=== PATIENT | female | born 1965 | race Caucasian/White ===

== ENCOUNTER 2021-02-20 10:39 | Inpatient (IN) | payer BC, MEDICAID ==
[~2021-02-20] VITALS: Ht 160 cm; Wt 61.7 kg
[2021-02-20] MEDS ORDERED: DIPHENHYDRAMINE 25MG CAPSULE PO ONE (11:00)
[2021-02-20] MEDS ORDERED: SODIUM CHLORIDE 0.9% 1,000 ML IV ONE (12:00)
[2021-02-20 12:21] LABS: BASOPHILS % 0.5 % (0.0-2.0); EOSINOPHILS % 0.5 % (0.0-5.0); HEMATOCRIT. 37.7 % (36.0-48.0); HEMOGLOBIN. 12.7 g/dL (12.0-16.0); LYMPHOCYTES % 31.7 % (20.0-50.0); MEAN CORPUSCULAR HEMOGLOBIN 29.4 pg (28.0-32.0); MEAN CORPUSCULAR VOLUME 87.6 fL (81.0-99.0); MEAN PLATELET VOLUME 8.5 fl (7.4-10.4); NEUTROPHILS % 59.3 % (40.0-76.0); PLATELET 276 x1000/uL (130-400); RED CELL DISTRIBUTION WIDTH 14.5 % (11.6-14.6)
[2021-02-20 12:27] LABS: CHLORIDE 108 mEq/L (98-107)
[2021-02-20 12:31] LABS: PARTIAL THROMBOPLASTIN TIME 27.2 sec (23.4-31.0); PROTHROMBIN TIME 10.7 sec (9.6-11.0)
[2021-02-20] MEDS ORDERED: ASPIRIN 81MG TABLET PO ONE (13:00)
[2021-02-20] MEDS ORDERED: DIPHENHYDRAMINE 50MG/ML VIAL IV PRN (15:30)
[2021-02-20] MEDS ORDERED: IPRATROPIUM/ALBUTEROL 0.5-3(2.5)MG/3ML NEB HHN PRN (15:30)
[2021-02-20] MEDS ORDERED: LORAZEPAM 0.5MG TABLET PO PRN (15:30)
[2021-02-20] MEDS ORDERED: HEPARIN 5000 UNITS/ML VIAL IV PRN ×2 (16:45)
[2021-02-20] MEDS ORDERED: HEPARIN 25,000 UNITS PREMIX 250 ML IV PRN (16:45)
[2021-02-20] MEDS ORDERED: HEPARIN 5000 UNITS/ML VIAL IV NR (16:45)
[2021-02-20 17:21] LABS: PROTHROMBIN TIME 10.9 sec (9.6-11.0)
[2021-02-20 18:00] VITALS: BP 161/71
[2021-02-20] MEDS ORDERED: ACETAMINOPHEN 325MG TABLET PO PRN (18:00)
[2021-02-20] MEDS ORDERED: CLONIDINE 0.1MG TABLET PO PRN (18:00)
[2021-02-20] MEDS ORDERED: DOCUSATE SODIUM 100MG CAPSULE PO PRN (18:00)
[2021-02-20] MEDS ORDERED: GUAIFENESIN 200MG/10ML SUGAR FREE UDC PO PRN (18:00)
[2021-02-20] MEDS ORDERED: ONDANSETRON HCL 4MG/2ML INJ IV PRN (18:00)
[2021-02-20] MEDS ORDERED: HYDROCODONE/ACETAMINOPHEN 5/325MG TABLET PO PRN (18:00)
[2021-02-20] MEDS ORDERED: MAGNESIUM/ALUMINUM HYDROXIDE/SIMETHICONE 30ML UDC PO PRN (18:00)
[2021-02-20 18:45] VITALS: BP 161/71
[2021-02-20] MEDS: FAMOTIDINE 20MG TABLET PO SCH (21:00)
[2021-02-20] MEDS: METHYLPREDNISOLONE SOD SUCC 40 MG/ML VIAL IV SCH (21:20)
[2021-02-20 21:30] VITALS: BP 115/68
[2021-02-20] MEDS: AMLODIPINE 10MG TABLET PO SCH (22:07)
[2021-02-21] VITALS: BP 126/67
[2021-02-21 04:00] VITALS: BP 118/52
[2021-02-21] MEDS: METHYLPREDNISOLONE SOD SUCC 40 MG/ML VIAL IV SCH ×3 (06:00→22:13)
[2021-02-21] MEDS: IPRATROPIUM/ALBUTEROL 0.5-3(2.5)MG/3ML NEB HHN SCH ×2 (07:15→15:11)
[2021-02-21 07:16] LABS: CHLORIDE 107 mEq/L (98-107)
[2021-02-21 07:21] LABS: BASOPHILS % 0.8 % (0.0-2.0); HEMATOCRIT. 38.4 % (36.0-48.0); HEMOGLOBIN. 12.8 g/dL (12.0-16.0); MEAN CORPUSCULAR HEMOGLOBIN 29.2 pg (28.0-32.0); MEAN CORPUSCULAR VOLUME 87.4 fL (81.0-99.0); MEAN PLATELET VOLUME 9.1 fl (7.4-10.4); MONOCYTES % 8.3 % (2.0-8.0); NEUTROPHILS % 56.9 % (40.0-76.0); PLATELET 265 x1000/uL (130-400); RED BLOOD CELL COUNT 4.39 mill/uL (4.2-5.4); RED CELL DISTRIBUTION WIDTH 14.3 % (11.6-14.6)
[2021-02-21 07:25] LABS: LDL CHOLESTEROL 126 mg/dL (5-100)
[2021-02-21 07:27] LABS: HDL CHOLESTEROL 80 mg/dL (40-59)
[2021-02-21 08:00] VITALS: BP 127/50
[2021-02-21] MEDS ORDERED: VERAPAMIL HCL 2.5 MG/1 ML 2ML VIAL IV ONE (08:33)
[2021-02-21] MEDS ORDERED: IODIXANOL 320MG/ML 100 ML BOTTLE IV ONE (08:34)
[2021-02-21] MEDS ORDERED: LIDOCAINE HCL 1% 10 MG/ML 10ML VIAL ONE (08:34)
[2021-02-21] MEDS ORDERED: HEPARIN SODIUM 1,000 UNIT/1ML VIAL IV ONE (08:39)
[2021-02-21] MEDS ORDERED: NITROGLYCERIN 50MCG/ML 10ML VIAL (CATH LAB) IV ONE (08:39)
[2021-02-21] MEDS ORDERED: NICARDIPINE 100MCG/ML 10ML VIAL (CATH LAB) IV ONE (08:39)
[2021-02-21] MEDS ORDERED: FENTANYL CITRATE/PF 50MCG/ML 2ML VIAL ONE (08:44)
[2021-02-21] MEDS ORDERED: MIDAZOLAM HCL 2 MG/2 ML VIAL ONE (08:45)
[2021-02-21] MEDS: FAMOTIDINE 20MG TABLET PO SCH ×2 (08:48→21:26)
[2021-02-21] MEDS: LORATADINE 10MG TABLET PO SCH (09:00)
[2021-02-21] MEDS: AMLODIPINE 10MG TABLET PO SCH (09:00)
[2021-02-21] MEDS ORDERED: DIPHENHYDRAMINE 50MG/ML VIAL ONE (09:23)
[2021-02-21] MEDS ORDERED: MIDAZOLAM HCL 5 MG/5 ML VIAL ONE (09:51)
[2021-02-21] MEDS ORDERED: FENTANYL CITRATE/PF 50MCG/ML 5ML VIAL ONE (09:51)
[2021-02-21] MEDS ORDERED: ATROPINE SULFATE 1MG/10ML SYR IV PRN (10:00)
[2021-02-21 13:00] VITALS: BP 130/52
[2021-02-21] MEDS: ACETAMINOPHEN 325MG TABLET PO PRN ×2 (13:31→21:25)
[2021-02-21 16:00] VITALS: BP 148/62
[2021-02-21 20:00] VITALS: BP 119/54
[2021-02-21] MEDS ORDERED: ATORVASTATIN CALCIUM 40MG TABLET PO SCH (21:00)
[2021-02-22] VITALS: BP 105/39
[2021-02-22 04:00] VITALS: BP 111/48
[2021-02-22] MEDS: METHYLPREDNISOLONE SOD SUCC 40 MG/ML VIAL IV SCH (06:21)
[2021-02-22 07:29] LABS: BASOPHILS % 0.1 % (0.0-2.0); HEMATOCRIT. 38.3 % (36.0-48.0); HEMOGLOBIN. 12.8 g/dL (12.0-16.0); LYMPHOCYTES % 12.6 % (20.0-50.0); MEAN CORPUSCULAR HEMOGLOBIN 29.1 pg (28.0-32.0); MEAN CORPUSCULAR VOLUME 87.4 fL (81.0-99.0); MEAN PLATELET VOLUME 8.9 fl (7.4-10.4); MONOCYTES % 1.1 % (2.0-8.0); NEUTROPHILS % 86.2 % (40.0-76.0); PLATELET 292 x1000/uL (130-400); RED BLOOD CELL COUNT 4.38 mill/uL (4.2-5.4); RED CELL DISTRIBUTION WIDTH 14.3 % (11.6-14.6)
[2021-02-22 07:30] LABS: CHLORIDE 108 mEq/L (98-107)
[2021-02-22 08:00] VITALS: BP 117/53
[2021-02-22] MEDS: FAMOTIDINE 20MG TABLET PO SCH (08:30)
[2021-02-22] MEDS: AMLODIPINE 10MG TABLET PO SCH (08:30)
[2021-02-22] MEDS: LORATADINE 10MG TABLET PO SCH (08:30)
== END 2021-02-22 11:10 | disposition home or self-care (01) | DRG 205 ==
LOC: ER 10:39 → EDBEDREQ 14:33 → 8WST 14:33 → EDBEDREQ 14:34 → ENRESERV 15:31
PROVIDERS: ADMIT Hospitalist; ATTEND Hospitalist
PROC: 4A023N7 Measurement of Cardiac Sampling and Pressure, Left Heart, Percutaneous Approach (ICD-10-PCS; principal; 2021-02-21)
PROC: B211YZZ Fluoroscopy of Multiple Coronary Arteries using Other Contrast (ICD-10-PCS; 2021-02-21)
DX: J68.0 Bronchitis and pneumonitis due to chemicals, gases, fumes and vapors (principal); I21.4 Non-ST elevation (NSTEMI) myocardial infarction; J96.01 Acute respiratory failure with hypoxia; E78.5 Hyperlipidemia, unspecified; F41.9 Anxiety disorder, unspecified; I25.119 Atherosclerotic heart disease of native coronary artery with unspecified angina pectoris; I10 Essential (primary) hypertension; Z20.822 Contact with and (suspected) exposure to COVID-19; I16.0 Hypertensive urgency; I77.1 Stricture of artery; R79.89 Other specified abnormal findings of blood chemistry; T65.891A Toxic effect of other specified substances, accidental (unintentional), initial encounter; Y92.89 Other specified places as the place of occurrence of the external cause
CPT/HCPCS: 36415; 71045; 71250; 80048; 80053; 80061; 83880; 84484; 85025; 87426; 93005; 93306; 93458; 93970; 94640; 99285; C1769; C1887; C1893; J1200; J1644; J2250; J2920; J3010; J3490; J7030; Q0163; Q9967